=== PATIENT | male | born 1970 | race Two or more races ===

== ENCOUNTER 2017-11-22 13:26 | Outpatient (CLI) | payer OTHER | END 2017-11-22 16:12 | disposition home or self-care (01) | LOC: RAD 501 13:26 | DX: M47.816 Spondylosis without myelopathy or radiculopathy, lumbar region (principal); M48.061 Spinal stenosis, lumbar region without neurogenic claudication ==

== ENCOUNTER 2022-08-12 05:40 | Day surgery (SDC) | payer OTHER ==
[~2022-08-12] VITALS: Ht 162.6 cm; Wt 72.6 kg
[~2022-08-12 05:40] MED LIST: ZESTORETIC 20-1 EACH PO
[2022-08-12] MEDS ORDERED: TRAM1TAB98 PO (09:38)
[2022-08-12] MEDS ORDERED: POLY119PG PO (09:38)
[2022-08-12] MEDS ORDERED: NEURONTIN300 MG PO (09:38)
== END 2022-08-12 12:35 | disposition home or self-care (01) ==
LOC: CIR.AMB 05:40
PROVIDERS: ATTEND Surgery
DX: K40.90 Unilateral inguinal hernia, without obstruction or gangrene, not specified as recurrent (principal); Z20.822 Contact with and (suspected) exposure to COVID-19; I10 Essential (primary) hypertension
CPT/HCPCS: 49650; C1781